=== PATIENT | female | born 1935 | race African-American/Black ===

== ENCOUNTER 2018-12-09 05:40 | Day surgery (SDC) | payer MEDICARE, OTHER ==
[2018-12-07 10:32] LABS: APPEARANCE,URINE CLEAR; BILIRUBIN,URINE NEGATIVE (NEGATIVE); COLOR,URINE STRAW; GLUCOSE, URINE NEGATIVE (NEGATIVE); KETONES,URINE NEGATIVE (NEGATIVE); LEUKOCYTE ESTERASE,URINE NEGATIVE (NEGATIVE); NITRITE,URINE NEGATIVE (NEGATIVE); PROTEIN,URINE NEGATIVE (NEGATIVE); URINE SPECIFIC GRAVITY 1.008; UROBILINOGEN,URINE NEGATIVE mg/dL (<2.0)
[2018-12-07 10:44] LABS: HEMATOCRIT 39.3 % (36.0-47.0); HEMOGLOBIN 12.9 g/dL (12.0-15.5); MEAN CORPUSCULAR HEMOGLOBIN 27.7 pg (27.0-33.4); MEAN CORPUSCULAR HGB CONC 32.7 g/dL (32.0-36.0); MEAN CORPUSCULAR VOLUME 85 fl (80-97); PLATELET COUNT 242 10^3/uL (150-450); RED BLOOD COUNT 4.64 10^6/uL (3.72-5.28); RED CELL DISTRIBUTION WIDTH 15.2 % (11.5-14.0); WHITE BLOOD COUNT 4.3 10^3/uL (4.0-10.5)
--- NOTE | 2018-12-07 23:14 | EKG REPORT ---
SEVERITY:- BORDERLINE ECG - SINUS RHYTHM BORDERLINE LEFT AXIS DEVIATION BORDERLINE T WAVE ABNORMALITIES : Confirmed by: Angelo Zendejas 07-Dec-2018 23:14:14
[~2018-12-09 05:40] MED LIST: LACTATED RINGERS 1000 ML IV PRN; LIDOCAINE 0.5% INJ-PF (5 MG/ML) 50 ML SDV SUBCUT PRN
[2018-12-09] MEDS ORDERED: DEXAMETHASONE SOD PHOSPHATE INJ 4 MG/1 ML VIAL ONE (06:37)
[2018-12-09] MEDS ORDERED: ONDANSETRON HCL INJ/PF 4 MG/2 ML SDV ONE (06:37)
[2018-12-09] MEDS ORDERED: MIDAZOLAM 2 MG/2 ML INJ ONE (06:37)
[2018-12-09] MEDS ORDERED: FENTANYL CITRATE INJ/PF 100 MCG/2 ML AMPUL ONE (06:37)
[2018-12-09] MEDS ORDERED: PROPOFOL INJ 200 MG/20 ML VIAL IV ONE (06:38)
[2018-12-09] MEDS ORDERED: KETOROLAC TROMETHAMINE 60 MG/2 ML SDV ONE (06:38)
[2018-12-09] MEDS ORDERED: FENTANYL CITRATE INJ/PF 100 MCG/2 ML AMPUL IV PRN ×3 (07:23)
[2018-12-09] MEDS ORDERED: MEPERIDINE HCL/PF INJ 25 MG/1 ML DISP.SYRIN IV PRN (07:23)
[2018-12-09] MEDS ORDERED: DIPHENHYDRAMINE HCL 50 MG/ML VIAL IV PRN (07:23)
[2018-12-09] MEDS ORDERED: OXYCODONE-ACETAMINOPHEN 5-325 MG TABLET PO PRN (08:28)
[2018-12-09] MEDS ORDERED: ONDANSETRON 4 MG TAB.RAPDIS PO PRN (08:28)
--- NOTE | 2018-12-09 09:00 | OPERATIVE REPORT E ---
Operative Report NAME: LOI FARIAS : 1935 AGE: 83Y DATE OF SURGERY: 12/09/2018 ROOM: PREOPERATIVE DIAGNOSIS: POSTMENOPAUSAL BLEEDING. POSTOPERATIVE DIAGNOSIS: 1. POSTMENOPAUSAL BLEEDING. 2. CERVICAL POLYP. 3. ENDOMETRIAL POLYP. OPERATION: Hysteroscopy, D and C, and removal of polyps. SURGEON: Markos ELAM M.D. ANESTHESIA: LMAC ESTIMATED BLOOD LOSS: Less than 5 mL TISSUE REMOVEcervical polyp endometrial polyp SURGEON: Markos ELAM M.D. ANESTHESIA: General. PROCEDURE: The patient was placed in the dorsal position, prepped and draped in normal sterile fashion. A speculum was placed and the cervix was visualized and grasped with a single-tooth tenaculum and sounded to a depth of 7 cm. There was a cervical polyp noted on the 3 o'clock position. This was bluntly removed. Hysteroscopy was then performed with a moderate size polyp being encountered and this was removed using the MyoSure. Curetting was then done and single tenaculum was then removed and procedure terminated. Hemostasis was noted and she was taken to the recovery room in good condition. DICTATING PHYSICIAN: Markos ELAM M.D. [id number] PHY#: [id number] ID: [id number] JOB#: [id number] ACCT: [id number] cc:Markos ELAM M.D. > MTDD
[2018-12-09 10:40] VITALS: BP 148/71
[2018-12-09] MEDS ORDERED: IBUPROFEN 800 MG TABLET PO SCH (14:00)
== END 2018-12-09 09:40 | disposition home or self-care (01) ==
LOC: OROUT 05:40
PROVIDERS: ATTEND Obstetrics & Gynecology Gynecology
DX: N95.0 Postmenopausal bleeding (principal); I10 Essential (primary) hypertension; E11.9 Type 2 diabetes mellitus without complications; N84.0 Polyp of corpus uteri; N84.1 Polyp of cervix uteri
CPT/HCPCS: 93005; 36415; 82962; 85027; 81001; 88305 ×2; 93010; 00952; 58558; J2250; J3010; J2405; J2704; 952; J1100; J1885